=== PATIENT | male | born 1995 | race Caucasian/White ===

== ENCOUNTER 2017-02-02 17:48 | Emergency (ER) | payer SELFPAY ==
[~2017-02-02] VITALS: Ht 175.3 cm; Wt 59.0 kg
[~2017-02-02 17:48] MED LIST: ACETAMINOPHEN-1 EAC1 PO; ACETAMINOPHEN325 M1 PO; FIORICET-COD 51 EACH PO; NAPROXEN500 MG PO; ULTRAM50 MG PO
== END 2017-02-02 21:52 | disposition home or self-care (01) ==
LOC: ED 17:48
PROC: 0HQEXZZ Repair Left Lower Arm Skin, External Approach (ICD-10-PCS; principal; 2017-02-02)
DX: S51.812A Laceration without foreign body of left forearm, initial encounter (principal); F10.129 Alcohol abuse with intoxication, unspecified; F32.9 Major depressive disorder, single episode, unspecified; J45.909 Unspecified asthma, uncomplicated; F17.200 Nicotine dependence, unspecified, uncomplicated; Z88.6 Allergy status to analgesic agent; Z88.5 Allergy status to narcotic agent; Y90.5 Blood alcohol level of 100-119 mg/100 ml; Y28.1XXA Contact with knife, undetermined intent, initial encounter
CPT/HCPCS: 12002; 36415; 80053; 80176; 81001; 84443; 85025; 90471; 90715; 99283; G0480

== ENCOUNTER 2018-05-03 21:53 | Emergency (ER) | payer SELFPAY ==
[~2018-05-03] VITALS: Ht 175.3 cm; Wt 59.0 kg
== END 2018-05-03 23:32 | disposition home or self-care (01) ==
LOC: ED 21:53
PROC: 0HQ1XZZ Repair Face Skin, External Approach (ICD-10-PCS; principal; 2018-05-03)
DX: F10.129 Alcohol abuse with intoxication, unspecified (principal); S01.81XA Laceration without foreign body of other part of head, initial encounter; F32.9 Major depressive disorder, single episode, unspecified; J45.909 Unspecified asthma, uncomplicated; F17.200 Nicotine dependence, unspecified, uncomplicated; Z88.6 Allergy status to analgesic agent; Z88.5 Allergy status to narcotic agent; W22.8XXA Striking against or struck by other objects, initial encounter
CPT/HCPCS: 12011; 99284-25

== ENCOUNTER 2020-04-27 01:08 | Emergency (ER) | payer SELFPAY ==
[~2020-04-27] VITALS: Ht 175.3 cm; Wt 65.8 kg
== END 2020-04-27 06:14 | disposition home or self-care (01) ==
LOC: ED 01:08
DX: F10.129 Alcohol abuse with intoxication, unspecified (principal); Y90.8 Blood alcohol level of 240 mg/100 ml or more; J45.909 Unspecified asthma, uncomplicated; F17.200 Nicotine dependence, unspecified, uncomplicated; Z88.8 Allergy status to other drugs, medicaments and biological substances; Z88.5 Allergy status to narcotic agent
CPT/HCPCS: 70450; 72125; 80053; 85025; 99284-25; J7030

== ENCOUNTER 2023-10-26 18:00 | Emergency (ER) | payer BC, OTHER ==
[~2023-10-26] VITALS: Ht 175.3 cm; Wt 70.0 kg
[2023-10-26] MEDS ORDERED: DIPHTH,PERTUSS(ACELL),TET VAC 0.5 ML SYRINGE IM ONE (19:00)
[2023-10-26] MEDS ORDERED: CEPHALEXIN500 M1 PO (19:36)
[2023-10-26] MEDS ORDERED: CEPHALEXIN MONOHYDRATE 500 MG CAP PO ONE (19:45)
[2023-10-26] MEDS ORDERED: CEPHALEXIN MONOHYDRATE 500 MG HOME.PACK PO ONE (20:00)
[2023-10-26 20:03] VITALS: BP 135/84
== END 2023-10-26 20:05 | disposition home or self-care (01) ==
LOC: ED 18:00
DX: S61.213A Laceration without foreign body of left middle finger without damage to nail, initial encounter (principal); W26.0XXA Contact with knife, initial encounter; J45.909 Unspecified asthma, uncomplicated; F17.200 Nicotine dependence, unspecified, uncomplicated; Z23 Encounter for immunization; Z88.6 Allergy status to analgesic agent; Z88.5 Allergy status to narcotic agent
CPT/HCPCS: 73140; 90471; 90715; 99283-25; A9270